=== PATIENT | female | born 1965 | race Caucasian/White ===

== ENCOUNTER 2020-11-09 06:55 | Day surgery (SDC) | payer SELFPAY ==
[~2020-11-09] VITALS: Ht 162.6 cm; Wt 99.6 kg
[2020-11-09] MEDS ORDERED: LIPITOR20 MG PO (08:34)
[2020-11-09] MEDS ORDERED: ZESTRIL 10MG10 MG PO (08:35)
[2020-11-09] MEDS ORDERED: EXCEDRIN1 TAB PO (08:36)
[2020-11-09] MEDS ORDERED: TRULICITY0.75 MG/0. SQ (08:36)
[2020-11-09] MEDS ORDERED: ALEVE 220MG220 MG PO (08:36)
[2020-11-09] MEDS ORDERED: TUMS500 MG PO (08:37)
[2020-11-09] MEDS ORDERED: TYLENOL SINUS1 EACH PO (08:38)
[2020-11-09] MEDS ORDERED: PRILOTC PO (08:39)
[2020-11-09] MEDS ORDERED: IMITREX100 MG PO (08:39)
[2020-11-09] MEDS ORDERED: MAXALT5 MG PO (08:40)
[2020-11-09] MEDS ORDERED: VALIUM 10MG10 MG/TAB PO (08:41)
[2020-11-09] MEDS ORDERED: EPIPEN 2-PAK1 MG/ML IM (08:42)
[2020-11-09] MEDS ORDERED: VITAMIND3 5000 PO (08:42)
[2020-11-09] MEDS ORDERED: VITAMIN B12 781 TAB SL (08:44)
[2020-11-09] MEDS ORDERED: CULTURELLE1 EAC1 PO (08:44)
[2020-11-09 08:59] VITALS: BP 119/72; PULSE 95; TEMP 98.6
[2020-11-09] MEDS ORDERED: NORCO 325 MG-51 TAB PO (13:45)
[2020-11-09 14:35] VITALS: BP 108/62; PULSE 101; TEMP 98.2
--- NOTE | 2020-11-09 14:35 | NUR ---
The patient arrived back to [facility] from the recovery room at this time. The patient appears alert and oriented and reports minimal pain at this time. Post operative vital signs were started at this time. The patient has a dressing to to her left calf and groin. The dressing to her groin has drainage present that was marked at this time. The patient agrees to try some water and saltine crackers at this time. Will continue to monitor the patient.
[2020-11-09 14:50] VITALS: BP 90/56; PULSE 93
--- NOTE | 2020-11-09 14:50 | NUR ---
The patient appears to be tolerating the food and drink well. Vital signs appear stable. Call light is within reach. Will continue to monitor the patient.
[2020-11-09 15:05] VITALS: BP 95/57; PULSE 93
--- NOTE | 2020-11-09 15:05 | NUR ---
The patient's drainage to her left calf dressing appears to have increased outside the marked line. Dr. Payne was notified and he gave the ok to change the dressing. When the dressing was changed the nurse found the drainage to be blue in color and most likely the dye that was injected in radiology prior to surgery. A new dressing was applied and the patient will be sent home with more supplies.
[2020-11-09 15:25] VITALS: BP 105/60; PULSE 83
--- NOTE | 2020-11-09 15:25 | NUR ---
The patient has finished her water but denies the need to void at this time. The patietn agrees to try more ice water at this time. The patient denies wanting anything further to eat to drink. Will continue to monitor the patient. Call light is within reach.
--- NOTE | 2020-11-09 15:31 | NUR ---
The patient ambulated to the bathroom with the stand by assistance of one nurse and appeared to tolerate the activity well. The nurse instructed the patient that if she is able to void that she has met criteria for discharge and may get dressed and notify the staff when she is ready to review her discharge paperwork.
--- NOTE | 2020-11-09 15:45 | NUR ---
Pt returns from bathroom. Pt voids without diffiuclties. Pt dressed. IV site discontinued with all parts intact. Discharge instructions reviewed. Pt voices understanding.
--- NOTE | 2020-11-09 16:00 | NUR ---
Pt escorted to private car via wheel chair. Pt accompanied home by her .
== END 2020-11-09 16:00 | disposition home or self-care (01) ==
LOC: COL.RAD 06:55 → SDCO 06:55 → MC.RAD 07:00 → COL.RAD 07:00 → SDCO 07:30
DX: C43.72 Malignant melanoma of left lower limb, including hip (principal); R59.9 Enlarged lymph nodes, unspecified; E11.9 Type 2 diabetes mellitus without complications; G43.909 Migraine, unspecified, not intractable, without status migrainosus; K21.9 Gastro-esophageal reflux disease without esophagitis; M19.90 Unspecified osteoarthritis, unspecified site; Z20.822 Contact with and (suspected) exposure to COVID-19; Z79.84 Long term (current) use of oral hypoglycemic drugs; Z98.51 Tubal ligation status; Z88.2 Allergy status to sulfonamides; Z82.49 Family history of ischemic heart disease and other diseases of the circulatory system
CPT/HCPCS: A9541; J0690; J1100; J2370; J2405; J2704; J2795; J3010; J7120; Q9968